=== PATIENT | female | born 1995 | race Caucasian/White ===

== ENCOUNTER 2018-10-21 20:13 | Emergency (ER) | payer MEDICAID ==
[~2018-10-21] VITALS: Ht 165.1 cm; Wt 69.0 kg
[~2018-10-21 20:13] MED LIST: NO HOME MEDS; NORCO10T PO
[2018-10-21 20:15] VITALS: BP 125/73
[2018-10-21] MEDS ORDERED: CEPH500C5 PO (20:30)
[2018-10-21] MEDS ORDERED: amoxicillin 250mg capsule PO ONE (20:30)
== END 2018-10-21 20:40 | disposition home or self-care (01) ==
LOC: ER 20:14
DX: K04.7 Periapical abscess without sinus (principal); F17.210 Nicotine dependence, cigarettes, uncomplicated; Z79.2 Long term (current) use of antibiotics; Z79.899 Other long term (current) drug therapy
CPT/HCPCS: 99283

== ENCOUNTER 2018-10-23 11:41 | Emergency (ER) | payer MEDICAID ==
[~2018-10-23] VITALS: Ht 162.6 cm; Wt 69.0 kg
[~2018-10-23 11:41] MED LIST changes: +CEPH500C5 PO
[2018-10-23 12:08] VITALS: BP 123/68
[2018-10-23] MEDS ORDERED: BUPIVAcaine/PF 7.5mg/ml (0.75%) 10ml vial IJ ONE (12:35)
[2018-10-23] MEDS ORDERED: IBUP-1985 PO (13:24)
[2018-10-23] MEDS ORDERED: CHLO473M3 PO (13:24)
== END 2018-10-23 13:37 | disposition home or self-care (01) ==
LOC: ER 11:41
DX: K04.7 Periapical abscess without sinus (principal); Z79.899 Other long term (current) drug therapy
CPT/HCPCS: 41800; 99283; J3490

== ENCOUNTER 2018-11-03 15:33 | Emergency (ER) | payer MEDICAID ==
[~2018-11-03] VITALS: Ht 162.6 cm; Wt 68.2 kg
[~2018-11-03 15:33] MED LIST changes: +CHLO473M3 PO; +IBUP-1985 PO
[2018-11-03] MEDS ORDERED: ondansetron/PF 4mg/2ml inj IV ONE (15:50)
[2018-11-03] MEDS ORDERED: haloperidol lactate 5mg/ml inj IM ONE (15:50)
[2018-11-03] MEDS ORDERED: ketorolac tromethamine 15mg/ml inj. IV ONE (15:50)
[2018-11-03] MEDS ORDERED: diphenhydrAMINE 50 mg/ml inj IV ONE (15:50)
[2018-11-03] MEDS ORDERED: normal saline 1000ML IV soln IVB ONE (15:50)
[2018-11-03 16:00] LABS: BASOPHILS % (AUTO) 0.1 % (0-1); EOSINOPHILS # (AUTO) 0.1 X10'3 (0-0.9); EOSINOPHILS % (AUTO) 0.3 % (0-6); HEMATOCRIT 41.6 % (35.0-45.0); LYMPHOCYTES # (AUTO) 0.8 X10'3 (1.1-4.8); LYMPHOCYTES % (AUTO) 5.7 % (21-51); MEAN CORPUSCULAR HEMOGLOBIN 30.6 PG (27.0-31.0); MEAN CORPUSCULAR HGB CONC 33.7 g/dL (33.0-36.5); MEAN CORPUSCULAR VOLUME 90.9 FL (78-98); MEAN PLATELET VOLUME 7.6 FL (7.4-10.4); MONOCYTES # (AUTO) 0.2 X10'3 (0-0.9); MONOCYTES % (AUTO) 1.2 % (2-12); NEUTROPHILS # (AUTO) 13.7 X10'3 (1.8-7.7); NEUTROPHILS % (AUTO) 92.7 % (42-75); PLATELET COUNT 368 X10'3 (140-440); RED BLOOD COUNT 4.58 X10'6 (4.20-5.60); RED CELL DISTRIBUTION WIDTH 14.4 % (11.5-14.5); WHITE BLOOD COUNT 14.8 X10'3 (4.5-11.0)
[2018-11-03 16:16] LABS: ALANINE AMINOTRANSFERASE 19 U/L (12-78); ALBUMIN 3.7 G/DL (3.4-5.0); ALBUMIN/GLOBULIN RATIO 0.8 (1.1-1.5); ALKALINE PHOSPHATASE 80 IU/L (46-116); ANION GAP 16 (8-16); ASPARTATE AMINO TRANSFERASE 14 U/L (10-37); BILIRUBIN,TOTAL 0.3 MG/DL (0.1-1.0); BLOOD UREA NITROGEN 13 MG/DL (7-18); BUN/CREATININE RATIO 11.8 (6.6-38.0); CALCIUM 9.5 MG/DL (8.5-10.1); CHLORIDE 104 MMOL/L (99-107); GLUCOSE 145 MG/DL (70-104); LIPASE < 50 U/L (73-393); SODIUM 142 MMOL/L (135-145); TOTAL PROTEIN 8.2 G/DL (6.4-8.2); eGFR 61 ML/MIN
[2018-11-03] MEDS ORDERED: PROC-8 PO (16:54)
[2018-11-03 17:17] VITALS: BP 106/40
== END 2018-11-03 17:22 | disposition home or self-care (01) ==
LOC: ER 15:34
DX: R11.2 Nausea with vomiting, unspecified (principal); R10.9 Unspecified abdominal pain; R19.7 Diarrhea, unspecified; F32.9 Major depressive disorder, single episode, unspecified; D72.829 Elevated white blood cell count, unspecified; F17.200 Nicotine dependence, unspecified, uncomplicated; F12.90 Cannabis use, unspecified, uncomplicated; Z90.49 Acquired absence of other specified parts of digestive tract; Z79.2 Long term (current) use of antibiotics; Z79.899 Other long term (current) drug therapy
CPT/HCPCS: 36415; 80053; 83690; 85025; 85610; 96361; 96372; 96374; 96375; 99283; J1200; J1630; J1885; J2405; J7030

== ENCOUNTER 2021-09-22 14:44 | Emergency (ER) | payer MEDICAID ==
[~2021-09-22] VITALS: Ht 162.6 cm; Wt 59.1 kg
[~2021-09-22 14:44] MED LIST changes: -CEPH500C5 PO; +PROC-8 PO
[2021-09-22 15:47] VITALS: BP 116/80
== END 2021-09-22 16:56 | disposition home or self-care (01) ==
LOC: ER 14:45
DX: F12.90 Cannabis use, unspecified, uncomplicated; F15.20 Other stimulant dependence, uncomplicated; Z98.890 Other specified postprocedural states
CPT/HCPCS: 99281